=== PATIENT | male | born 1980 | race Caucasian/White ===

== ENCOUNTER 2019-08-04 09:56 | Emergency (ER) | payer MEDICAID ==
[~2019-08-04] VITALS: Ht 177.8 cm; Wt 81.8 kg
[2019-08-04 10:05] VITALS: Ht 177.8 cm; Wt 81.8 kg
[2019-08-04] MEDS ORDERED: HYDROCODON-ACE1 EA10 PO (11:51)
[2019-08-04 12:11] VITALS: BP 121/71
== END 2019-08-04 12:10 | disposition home or self-care (01) ==
LOC: D.ER 09:56
DX: S52.122A Displaced fracture of head of left radius, initial encounter for closed fracture (principal); S49.92XA Unspecified injury of left shoulder and upper arm, initial encounter; S89.91XA Unspecified injury of right lower leg, initial encounter; V29.3XXA Motorcycle rider (driver) (passenger) injured in unspecified nontraffic accident, initial encounter; F17.210 Nicotine dependence, cigarettes, uncomplicated

== ENCOUNTER → 2019-09-13 12:56 | Outpatient (CLI) | payer MEDICAID ==
[2019-08-04 10:05] VITALS: BMI 25.8
[~2019-09-13 12:56] MED LIST: HYDROCODON-ACE1 EA10 PO
== END | disposition home or self-care (01) ==
LOC: D.CT 12:56
PROVIDERS: ATTEND Orthopaedic Surgery
DX: M25.522 Pain in left elbow (principal)

== ENCOUNTER 2019-10-05 08:00 | Outpatient (CLI) | payer MEDICAID ==
[2019-08-04 10:05] VITALS: Ht 182.9 cm; Wt 89.8 kg
[~2019-10-05] VITALS: Ht 182.9 cm; Wt 89.8 kg
[2019-10-05 08:54] LABS: BASOPHILS 0.2 % (0-2); EOSINOPHILS 2.5 % (0-7); HEMATOCRIT 40.6 % (42.0-54.0); HEMOGLOBIN 13.6 g/dL (13.5-17.5); IMMATURE GRANULOCYTES 0.4 % (0-5); LYMPHOCYTES 34.2 % (15-50); MCH 30.5 pg (26.0-34.0); MCHC 33.5 g/dL (31.0-37.0); MONOCYTES 15.2 % (2-11); NEUTROPHILS 47.5 % (40-80); PLATELET COUNT 297 10x3/uL (130-400); RBC 4.46 10x6/uL (4.20-6.10); RDW 13.1 % (11.5-14.5); WBC 5.2 10x3/uL (4.8-10.8)
[2019-10-05 09:01] LABS: CALC OSMOLALITY 280 mosm/kg (275-300); CALCIUM 9.2 mg/dL (8.5-10.1); CARBON DIOXIDE 25.9 mmol/L (21.0-32.0); CHLORIDE - SERUM 106 mmol/L (98-107); CREATININE - SERUM 1.1 mg/dL (0.6-1.3); GLUCOSE 124 mg/dL (74-106); POTASSIUM - SERUM 3.7 mmol/L (3.5-5.1); SODIUM 141 mmol/L (136-145); UREA NITROGEN 9 mg/dL (7-18); eGFR NON AFRICAN AMERICAN 79 mL/min (90-120)
== END 2019-10-05 08:01 | disposition home or self-care (01) ==
LOC: D.OPS 08:00 → D.PAN 10-06 09:00 → D.OPS 10-06 09:00 → D.PAN 10-06 09:45 → D.OPS 10-06 09:45 → EDSTATUS 10-06 09:45
PROVIDERS: ATTEND Orthopaedic Surgery
DX: M24.022 Loose body in left elbow (principal)